=== PATIENT | male | born 1985 | race Caucasian/White ===

== ENCOUNTER 2021-02-02 18:25 | Inpatient (IN) ==
[2021-02-02] MEDS ORDERED: SODIUM CHLORIDE 0.9% 1000ML 1,000 ML IV ONE (18:43)
[2021-02-02] MEDS ORDERED: ACETAMINOPHEN 500 MG TAB PO STA (18:43)
[2021-02-02] MEDS ORDERED: PIPERACILL/TAZOBAC CONSULT ACTIVE PRN (18:43)
[2021-02-02] MEDS ORDERED: PIPERACILLIN/TAZOBACTAM 4.5 GM/120 ML BAG IV ONE (18:43)
--- NOTE | 2021-02-02 18:50 | Emergency Department Note ---
History of Present Illness General Chief complaint: Infection Stated complaint: LEG INFECTION, FEVER Time Seen by Provider: 02/02/21 18:31 Source: patient Mode of arrival: ambulatory Limitations: no limitations History of Present Illness Maximum Pain Intensity: 5 This patient is a 35-year-old male who comes in with left leg pain, redness and fever. He suffered a significant degloving injury at work in December 2019 and [facility] and was in rehab. He has had 2 leg infection since then 1 in April and one in July. He says this feels like similar. He is not on chronic antibiotics. He was feeling his usual state of health until around 4:00 in the morning he started getting a little bit of redness the pain started around 730 while at [employer] and then he started having chills and a fever. He has a slight headache and body aches. No cough or respiratory symptoms. No chest pain or shortness of breath. No urinary symptoms no rash except for on the leg. He did have multiple skin grafts there. He is on no prophylactic or chronic antibiotics. He is on no blood thinners. He did not have his Covid vaccine yet. He did not take any for his fever at home. Home Medications Medication Instructions Recorded Confirmed Type No Known Home Medications 02/02/21 02/02/21 History Allergies Allergy/AdvReac Type Severity Reaction Status Date / Time No Known Allergies Allergy Verified 02/02/21 18:53 Past Med/Surg History Social History Smoking Status: Never smoker Preferred Language: Polish Feels Safe at Home: Yes Immunizations: Past medical historycellulitis and degloving injury. Denies diabetes or other medical problems. Social history he lives locally. Does not smoke Review of Systems A total of 10 systems reviewed and were otherwise negative Physical Exam Vital Signs Vital Signs - 24 hr 02/02/21 18:28 02/02/21 18:43 02/02/21 19:00 Temperature 39.0 C H 39.4 C H Temperature Source Temporal Artery Scan Oral Pulse Rate 132 H Pulse Rate [Apical] Pulse Rate from SpO2 Sensor Respiratory Rate 18 Respiratory Effort / Characteristics Non-Labored Spontaneous Blood Pressure 182/96 H Blood Pressure [Right Arm] Blood Pressure Mean 124 Blood Pressure Mean [Right Arm] Pulse Oximetry 99 Oxygen Delivery Method Room Air Room Air Sepsis Recent Fever Within 48 Hours Yes Sepsis New/Unexplained Change in Mental Status No Sepsis Action Taken by Nursing No Action Required 02/02/21 19:13 02/02/21 19:19 02/02/21 19:23 Temperature Temperature Source Pulse Rate Pulse Rate [Apical] 123 H Pulse Rate from SpO2 Sensor Respiratory Rate 21 Respiratory Effort / Characteristics Non-Labored Spontaneous Blood Pressure Blood Pressure [Right Arm] 144/92 H Blood Pressure Mean Blood Pressure Mean [Right Arm] 109 Pulse Oximetry 98 Oxygen Delivery Method Room Air Room Air Room Air Sepsis Recent Fever Within 48 Hours Sepsis New/Unexplained Change in Mental Status Sepsis Action Taken by Nursing 02/02/21 19:30 02/02/21 19:43 02/02/21 20:00 Temperature Temperature Source Pulse Rate 130 H 125 H Pulse Rate [Apical] Pulse Rate from SpO2 Sensor 130 H 125 H Respiratory Rate 20 15 Respiratory Effort / Characteristics Non-Labored Spontaneous Non-Labored Spontaneous Blood Pressure 138/97 150/85 H Blood Pressure [Right Arm] Blood Pressure Mean 110 106 Blood Pressure Mean [Right Arm] Pulse Oximetry 99 98 Oxygen Delivery Method Room Air Room Air Room Air Sepsis Recent Fever Within 48 Hours Sepsis New/Unexplained Change in Mental Status Sepsis Action Taken by Nursing 02/02/21 20:19 02/02/21 20:30 02/02/21 21:00 Temperature 38.3 C H Temperature Source Oral Pulse Rate 130 H Pulse Rate [Apical] Pulse Rate from SpO2 Sensor 130 H Respiratory Rate 26 H Respiratory Effort / Characteristics Non-Labored Spontaneous Non-Labored Spontaneous Blood Pressure 162/79 H Blood Pressure [Right Arm] Blood Pressure Mean 106 Blood Pressure Mean [Right Arm] Pulse Oximetry 96 Oxygen Delivery Method Room Air Room Air Sepsis Recent Fever Within 48 Hours Sepsis New/Unexplained Change in Mental Status Sepsis Action Taken by Nursing 02/02/21 21:30 02/02/21 21:36 02/02/21 22:00 Temperature 37.6 C H Temperature Source Oral Pulse Rate Pulse Rate [Apical] 105 H Pulse Rate from SpO2 Sensor Respiratory Rate 18 Respiratory Effort / Characteristics Non-Labored Spontaneous Non-Labored Spontaneous Blood Pressure Blood Pressure [Right Arm] 143/109 H Blood Pressure Mean Blood Pressure Mean [Right Arm] 120 Pulse Oximetry 97 Oxygen Delivery Method Room Air Room Air Room Air Sepsis Recent Fever Within 48 Hours Sepsis New/Unexplained Change in Mental Status Sepsis Action Taken by Nursing 02/02/21 22:22 02/02/21 22:30 Temperature Temperature Source Pulse Rate Pulse Rate [Apical] Pulse Rate from SpO2 Sensor 100 H 98 H Respiratory Rate Respiratory Effort / Characteristics Non-Labored Spontaneous Blood Pressure 132/81 Blood Pressure [Right Arm] Blood Pressure Mean 98 Blood Pressure Mean [Right Arm] Pulse Oximetry 97 97 Oxygen Delivery Method Room Air Room Air Sepsis Recent Fever Within 48 Hours Sepsis New/Unexplained Change in Mental Status Sepsis Action Taken by Nursing General: Well developed well nourished not ill-appearing young male who appears in no acute distress, breathing comfortably on room air. Normal speech HEENT: Normal cephalic atraumatic. Pupils are equal round and reactive to light. Extraocular movements are intact. Oropharynx is pink with moist mucous membranes. No swelling of the mouth lips or tongue. Neck: Supple with a midline trachea. No meningeal signs or stiffness, no JVD or bruits. No Stridor. Kernig and Brezinski sign Chest: Clear to auscultation bilaterally. No wheezes or rhonchi. No increased work of breathing. Heart: Regular rate and rhythm without murmurs or gallops. Abdomen: Soft nontender, nondistended without rebound guarding or rigidity. Extremities: No cyanosis clubbing or edema. No calf tenderness or assymetry. His left calf is red and warm mostly laterally with a rash there from cellulitis. It is tender. Distally his foot is pink and well-perfused appearing and has no evidence of neurologic or neurovascular compromise. Spine/Back. Non tender to palpation. No CVA tenderness Skin: Good turgor without rashes. Neurologic exam: Cranial nerves two through 12 are intact. Motor and sensation are intact and symmetrical throughout. Course Administered Medications Potassium Chloride 20 meq/ (Lactated Ringer's) 1,010 mls @ 200 mls/hr IV .Q5H3M ONE Stop: 02/03/21 01:33 Last Admin: 02/02/21 23:52 Dose: 200 mls/hr Documented by: [id number] Discontinued Medications Acetaminophen (Acetaminophen 500 Mg Tab) 1,000 mg PO NOW STA Stop: 02/02/21 18:44 Last Admin: 02/02/21 18:59 Dose: 1,000 mg Documented by: [id number] Sodium Chloride (Nss 1000ml) 1,000 mls @ 999 mls/hr IV .Q1H1M ONE Stop: 02/02/21 19:43 Last Infusion: 02/02/21 23:02 Dose: 0 mls/hr Documented by: [id number] Admin: 02/02/21 19:21 Dose: 999 mls/hr Documented by: [id number] Piperacillin Sod/Tazobactam Sod (Zosyn) 4.5 gm in 120 mls @ 240 mls/hr IV NOW ONE Stop: 02/02/21 19:12 Last Infusion: 02/02/21 20:50 Dose: 0 mls/hr Documented by: [id number] Admin: 02/02/21 20:20 Dose: 240 mls/hr Documented by: [id number] Magnesium Sulfate/Dextrose (Magnesium Sulfate / D5w) 1 gm in 100 mls @ 50 mls/hr IV ONE ONE Stop: 02/02/21 22:29 Last Infusion: 02/02/21 23:52 Dose: 0 mls/hr Documented by: [id number] Admin: 02/02/21 21:38 Dose: 50 mls/hr Documented by: [id number] Doxycycline Hyclate 100 mg/ (Dextrose) 110 mls @ 50 mls/hr IV NOW STA Stop: 02/02/21 22:51 Last Infusion: 02/02/21 23:52 Dose: 0 mls/hr Documented by: [id number] Infusion: 02/02/21 23:52 Dose: 0 mls/hr Documented by: [id number] Admin: 02/02/21 21:37 Dose: 50 mls/hr Documented by: [id number] Ioversol (Optiray 320 100ml) 94 ml IV ONCE ONE Stop: 02/02/21 22:01 Last Admin: 02/02/21 22:00 Dose: 1 ml Documented by: [id number] Medical Decision Making Differential Diagnosis Cellulitis, sepsis, DVT, Covid, electrolyte or metabolic abnormality Medical Records Attestation: I reviewed the patient's medical records. Home Medications Current Medication List: was personally reviewed by me Laboratory Data Attestation: I reviewed the patient's lab results. Result diagrams: 02/02/21 19:21 02/02/21 19:21 Lab Results 02/02/21 02/02/21 02/02/21 Range/Units 19:21 19:21 19:21 WBC 9.05 (4.8-10.8) K/uL RBC 5.93 (4.7-6.1) M/uL Hgb 15.3 (14.0-18.0) g/dL Hct 46.0 (42-52) % MCV 77.6 L (80-100) fL MCH 25.8 (25-34) pg MCHC 33.3 (32-36) g/dL RDW Std Deviation 38.4 (36.4-46.3) fL RDW Coeff of Zahraa 13.8 (11.5-14.5) % Plt Count 265 (130-400) K/uL MPV 10.0 (7.4-10.4) fL Immature Gran % (Auto) 0.2 % Neut % (Auto) 82.0 % Lymph % (Auto) 10.6 % [facility] % (Auto) 7.0 % Eos % (Auto) 0.0 % Baso % (Auto) 0.2 % Neut # (Auto) 7.42 H (1.4-6.5) K/uL Lymph # (Auto) 0.96 L (1.2-3.4) K/uL [facility] # (Auto) 0.63 H (0.11-0.59) K/uL Eos # (Auto) 0.00 (0-0.5) K/uL Baso # (Auto) 0.02 (0-0.2) K/uL Immature Gran # (Auto) 0.02 (0.00-0.02) K/uL PT 11.1 (9.0-12.0) Seconds INR 1.1 (0.9-1.1) APTT 33.5 H (21.0-31.0) Seconds PTT Ratio 1.3 Sodium 134 L (136-145) mmol/L Potassium 3.8 (3.5-5.1) mmol/L Chloride 99 (98-107) mmol/L Carbon Dioxide 26 (21-32) mmol/L Anion Gap 9.0 (3-11) BUN 19 H (7-18) mg/dl Creatinine 1.38 (0.6-1.4) mg/dl Est Cr Clr Drug Dosing 95.5 ml/min Est GFR ( Amer) 77.3 ml/min Est GFR (Non-Af Amer) 66.7 ml/min BUN/Creatinine Ratio 14.0 (10-20) Glucose 97 (70-99) mg/dl Lactate (0.4-2.0) mmol/L Calcium 9.2 (8.5-10.1) mg/dl Magnesium 1.9 (1.8-2.4) mg/dl Total Bilirubin 0.7 (0.2-1) mg/dl AST 18 (15-37) U/L ALT 21 (12-78) U/L Alkaline Phosphatase 106 (45-117) U/L Troponin I < 0.015 (0-0.045) ng/ml Total Protein 9.0 H (6.4-8.2) gm/dl Albumin 4.0 (3.4-5.0) gm/dl Globulin 4.9 H (2.5-4.0) gm/dl Albumin/Globulin Ratio 0.8 L (0.9-2) Procalcitonin (0-0.5) ng/ml TSH 1.320 (0.300-4.500) uIu/ml Urine Color Urine Appearance (Clear) Urine pH (4.5-7.5) Ur Specific Cushing (1.000-1.030) Urine Protein (Negative) Urine Glucose (UA) (Negative) Urine Ketones (Negative) Urine Blood (Negative) Urine Nitrite (Negative) Urine Bilirubin (Negative) Urine Urobilinogen (Negative) Ur Leukocyte Esterase (Negative) Urine WBC (Auto) (0-5) /hpf Urine RBC (Auto) (0-4) /hpf U Hyaline Cast (Auto) (0-5) /lpf U Epithel Cells (Auto) (0-5) /lpf Urine Bacteria (Auto) (Negative) COVID-19 Eval Order SARS-CoV-2 (PCR) (Negative) 02/02/21 02/02/21 02/02/21 Range/Units 19:21 19:21 19:21 WBC (4.8-10.8) K/uL RBC (4.7-6.1) M/uL Hgb (14.0-18.0) g/dL Hct (42-52) % MCV (80-100) fL MCH (25-34) pg MCHC (32-36) g/dL RDW Std Deviation (36.4-46.3) fL RDW Coeff of Zahraa (11.5-14.5) % Plt Count (130-400) K/uL MPV (7.4-10.4) fL Immature Gran % (Auto) % Neut % (Auto) % Lymph % (Auto) % [facility] [place] % (Auto) % Eos % (Auto) % Baso % (Auto) % Neut # (Auto) (1.4-6.5) K/uL Lymph # (Auto) (1.2-3.4) K/uL [facility] [place] # (Auto) (0.11-0.59) K/uL Eos # (Auto) (0-0.5) K/uL Baso # (Auto) (0-0.2) K/uL Immature Gran # (Auto) (0.00-0.02) K/uL PT (9.0-12.0) Seconds INR (0.9-1.1) APTT (21.0-31.0) Seconds PTT Ratio Sodium (136-145) mmol/L Potassium (3.5-5.1) mmol/L Chloride (98-107) mmol/L Carbon Dioxide (21-32) mmol/L Anion Gap (3-11) BUN (7-18) mg/dl Creatinine (0.6-1.4) mg/dl Est Cr Clr Drug Dosing ml/min Est GFR ( Amer) ml/min Est GFR (Non-Af Amer) ml/min BUN/Creatinine Ratio (10-20) Glucose (70-99) mg/dl Lactate 1.3 (0.4-2.0) mmol/L Calcium (8.5-10.1) mg/dl Magnesium (1.8-2.4) mg/dl Total Bilirubin (0.2-1) mg/dl AST (15-37) U/L ALT (12-78) U/L Alkaline Phosphatase (45-117) U/L Troponin I (0-0.045) ng/ml Total Protein (6.4-8.2) gm/dl Albumin (3.4-5.0) gm/dl Globulin (2.5-4.0) gm/dl Albumin/Globulin Ratio (0.9-2) Procalcitonin 0.07 (0-0.5) ng/ml TSH Cancelled (0.300-4.500) uIu/ml Urine Color Urine Appearance (Clear) Urine pH (4.5-7.5) Ur Specific Cushing (1.000-1.030) Urine Protein (Negative) Urine Glucose (UA) (Negative) Urine Ketones (Negative) Urine Blood (Negative) Urine Nitrite (Negative) Urine Bilirubin (Negative) Urine Urobilinogen (Negative) Ur Leukocyte Esterase (Negative) Urine WBC (Auto) (0-5) /hpf Urine RBC (Auto) (0-4) /hpf U Hyaline Cast (Auto) (0-5) /lpf U Epithel Cells (Auto) (0-5) /lpf Urine Bacteria (Auto) (Negative) COVID-19 Eval Order SARS-CoV-2 (PCR) (Negative) 02/02/21 02/02/21 02/02/21 Range/Units 20:29 20:29 20:48 WBC (4.8-10.8) K/uL RBC (4.7-6.1) M/uL Hgb (14.0-18.0) g/dL Hct (42-52) % MCV (80-100) fL MCH (25-34) pg MCHC (32-36) g/dL RDW Std Deviation (36.4-46.3) fL RDW Coeff of Zahraa (11.5-14.5) % Plt Count (130-400) K/uL MPV (7.4-10.4) fL Immature Gran % (Auto) % Neut % (Auto) % Lymph % (Auto) % [facility] [place] [facility] % (Auto) % Eos % (Auto) % Baso % (Auto) % Neut # (Auto) (1.4-6.5) K/uL Lymph # (Auto) (1.2-3.4) K/uL [facility] [place] [facility] # (Auto) (0.11-0.59) K/uL Eos # (Auto) (0-0.5) K/uL Baso # (Auto) (0-0.2) K/uL Immature Gran # (Auto) (0.00-0.02) K/uL PT (9.0-12.0) Seconds INR (0.9-1.1) APTT (21.0-31.0) Seconds PTT Ratio Sodium (136-145) mmol/L Potassium (3.5-5.1) mmol/L Chloride (98-107) mmol/L Carbon Dioxide (21-32) mmol/L Anion Gap (3-11) BUN (7-18) mg/dl Creatinine (0.6-1.4) mg/dl Est Cr Clr Drug Dosing ml/min Est GFR ( Amer) ml/min Est GFR (Non-Af Amer) ml/min BUN/Creatinine Ratio (10-20) Glucose (70-99) mg/dl Lactate (0.4-2.0) mmol/L Calcium (8.5-10.1) mg/dl Magnesium (1.8-2.4) mg/dl Total Bilirubin (0.2-1) mg/dl AST (15-37) U/L ALT (12-78) U/L Alkaline Phosphatase (45-117) U/L Troponin I (0-0.045) ng/ml Total Protein (6.4-8.2) gm/dl Albumin (3.4-5.0) gm/dl Globulin (2.5-4.0) gm/dl Albumin/Globulin Ratio (0.9-2) Procalcitonin (0-0.5) ng/ml TSH (0.300-4.500) uIu/ml Urine Color Yellow Urine Appearance Clear (Clear) Urine pH 5.5 (4.5-7.5) Ur Specific Cushing 1.009 (1.000-1.030) Urine Protein Negative (Negative) Urine Glucose (UA) Negative (Negative) Urine Ketones Negative (Negative) Urine Blood Trace H (Negative) Urine Nitrite Negative (Negative) Urine Bilirubin Negative (Negative) Urine Urobilinogen Negative (Negative) Ur Leukocyte Esterase Negative (Negative) Urine WBC (Auto) 0 (0-5) /hpf Urine RBC (Auto) 0-4 (0-4) /hpf U Hyaline Cast (Auto) 0 (0-5) /lpf U Epithel Cells (Auto) 0-5 (0-5) /lpf Urine Bacteria (Auto) Negative (Negative) COVID-19 Eval Order Covid19 at [facility] SARS-CoV-2 (PCR) NEGATIVE (Negative) Imaging Data Attestation: I personally reviewed and interpreted this imaging study as follows: My Impression: Chest x-rayno acute infiltrate, failure, pneumothorax seen ECG Data Attestation: I personally reviewed and interpreted this ECG as follows: Indication: + other (Sepsis) Rate (beats per minute): 121 Rhythm: + sinus tachycardia ECG Intervals/blocks: + Normal QRS, + Normal QT and + Normal KS ECG Costa: + Normal ECG ST segments: + Normal ST segments ECG Findings: no PACs or no PVCs Comparison ECG Date: from (06/05/09) Change: the following changes noted (Rate has increased) MDM Narrative This patient comes in as described above. He was placed on a alarm security or surveillance monitor and B12. He has a high temperature and left leg swelling and redness. He has a history of cellulitis after having a significant degloving injury last year. I suspect that was going on at this point. IV access was established and was given IV fluid bolus. he was given Zosyn 4.5 g IV. Multiple blood testing was obtained including blood cultures and lactic acid. A full sepsis work-up was obtained I also did an ultrasound of his leg. He was reassessed frequently. He was given acetaminophen 1 g p.o. for his fever. Additionally was Covid tested. Covid testing was negative. Ultrasound of his leg does not show any evidence of DVT. He has a fever and cellulitis although his inflammatory markers look okay I do think that he needs to be admitted for IV antibiotics. He has been tolerating the IV Zosyn so far. I did discuss case with Dr. Calle who saw the patient in ED and will admit him for these measures. Continuous cardiac monitoring: Orders placed in EMR for continuous alarm security or surveillance monitor. Upon my interpretation the patient was noted to be sinus tachycardia at a rate of 110 Impression & Plan Cellulitis, Leg pain, left, Lab test negative for COVID-19 virus, Sepsis Discharge Plan Visit Data Chief Complaint: Infection Stated Complaint: LEG INFECTION, FEVER ED Provider: Moses Mathur Discharge Problem: Cellulitis, Leg pain, left, Lab test negative for COVID-19 virus, Sepsis Forms Stand Alone Forms: My [facility] [employer] Prescriptions Prescriptions: No Action No Known Home Medications RF: 0 Referrals Referrals: Sergey Sosa MD [Physician] -
[2021-02-02 19:38] LABS: Basophils # (auto) 0.02 K/uL (0-0.2); Basophils % (auto) 0.2 %; Hemoglobin 15.3 g/dL (14.0-18.0); Immature Granulocytes # (auto) 0.02 K/uL (0.00-0.02); Immature Granulocytes % (auto) 0.2 %; Lymphocytes # (auto) 0.96 K/uL (1.2-3.4); Lymphocytes % (auto) 10.6 %; Mean Corpuscular Hemoglobin 25.8 pg (25-34); Mean Corpuscular Hgb Conc 33.3 g/dL (32-36); Mean Corpuscular Volume 77.6 fL (80-100); Monocytes # (auto) 0.63 K/uL (0.11-0.59); Neutrophils # (auto) 7.42 K/uL (1.4-6.5); Platelet Count 265 K/uL (130-400); RDW Coefficient of Variation 13.8 % (11.5-14.5); RDW Standard Deviation 38.4 fL (36.4-46.3); Red Blood Count 5.93 M/uL (4.7-6.1); White Blood Count 9.05 K/uL (4.8-10.8)
[2021-02-02 19:47] LABS: INR 1.1 (0.9-1.1); Partial Thromboplastin Ratio 1.3; Partial Thromboplastin Time 33.5 Seconds (21.0-31.0); Prothrombin Time 11.1 Seconds (9.0-12.0)
[2021-02-02 19:59] LABS: Alanine Aminotransferase 21 U/L (12-78); Aspartate Aminotransferase 18 U/L (15-37); Blood Urea Nitrogen 19 mg/dl (7-18); Calcium 9.2 mg/dl (8.5-10.1); Carbon Dioxide 26 mmol/L (21-32); Chloride 99 mmol/L (98-107); Creatinine Clr Calc Pharmacy 95.5 ml/min; Est GFR (African American) 77.3 ml/min; Est GFR (Non-African American) 66.7 ml/min; Glucose 97 mg/dl (70-99); Magnesium 1.9 mg/dl (1.8-2.4); Potassium 3.8 mmol/L (3.5-5.1); Sodium 134 mmol/L (136-145)
[2021-02-02 20:04] LABS: Albumin Globulin Ratio 0.8 (0.9-2); Alkaline Phosphatase 106 U/L (45-117); Bilirubin,Total 0.7 mg/dl (0.2-1); Globulin 4.9 gm/dl (2.5-4.0); Troponin I < 0.015 ng/ml (0-0.045)
[2021-02-02] MEDS ORDERED: MAGNESIUM SULFATE / D5W 1 GM/100 ML BAG IV ONE (20:30)
[2021-02-02] MEDS ORDERED: POTASSIUM CHLORIDE 20 MEQ in LACTATED RINGER'S 1,000 ML IV ONE (20:31)
[2021-02-02] MEDS ORDERED: DOXYCYCLINE HYCLATE 100 MG in DEXTROSE 5% 100 ML IV STA (20:40)
[2021-02-02 20:57] LABS: Appearance Urine Clear (Clear); Bacteria Urine Automated Negative (Negative); Bilirubin Urine Negative (Negative); Blood Urine Trace (Negative); Cast Urine Automated 0 /lpf (0-5); Color Urine Yellow; Epithelial Cell Urine Auto 0-5 /lpf (0-5); Glucose Urine UA Negative (Negative); Ketones Urine Negative (Negative); Leukocyte Esterase Urine Negative (Negative); Nitrite Urine Negative (Negative); Protein Urine Negative (Negative); RBC Urine Automated 0-4 /hpf (0-4); Specific Gravity Urine 1.009 (1.000-1.030); Urobilinogen Urine Negative (Negative); WBC Urine Automated 0 /hpf (0-5); pH Urine 5.5 (4.5-7.5)
[2021-02-02] MEDS ORDERED: OPTIRAY 320 100ml IV ONE (22:00)
--- NOTE | 2021-02-02 22:40 | History & Physical Report ---
Date of Service February 02, 2021 Assessment & Plan (1) Sepsis: Plan: Secondary to recurrent LLE cellulitis hx traumatic injury Rule out osteomyelitis given recurrent infections History traumatic groin/penile injury status post reconstruction Medical telemetry CS, Doxycycline Local measures for leg cellulitis May need MRI left lower leg to rule out osteomyelitis as recent for recurrent infections DVT prophylaxis per Lovenox subcu Full code Text document was generated using [employer] voice recognition software. It may contain grammatical or spelling errors. Kindly contact undersigned for clarification of any documentation item in question. History of Present Illness Chief Complaint: Left lower leg swelling, fever Primary Care Provider: Eliazar Mac DO History obtained from patient and records. Medical history significant for traumatic groin degloving/penile injury status post reconstruction surgery (12/2019), recurrent leg cellulitis. 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 Subsequent surgical reconstruction of groin injury with tissue harvest from left thigh. Two subsequent admissions at [facility] in April, and August, for left lower leg abscess status post outpatient drainage and left lower l eg cellulitis, respectively. Patient unaware of any CS results. Today, patient noted sudden onset left leg pain, redness and fever. No chest pain, no S OB. No recent trauma. IV Zosyn given at the ER. 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 Allergies Allergy/AdvReac Type Severity Reaction Status Date / Time No Known Allergies Allergy Verified 02/02/21 18:53 Home Medications Medication Instructions Recorded Confirmed Type No Known Home Medications 02/02/21 02/02/21 History Past Med/Surg History Medical History (Updated 02/03/21 @ 10:58 by Lizabeth Cr PA-C) Cellulitis Surgical History (Updated 02/03/21 @ 09:08 by Lizabeth Cr PA-C) History of colostomy History of colostomy reversal hx of work related injury dec 2019 History of skin graft Family History (Updated 02/03/21 @ 09:09 by Lizabeth Cr PA-C) Father Diabetes Mother Hypertension Social History Smoking Status: Never smoker Second Hand Exposure: No; Hx Alcohol Use: No Hx Substance Use: No Preferred Language: Macedonian Beliefs That Will Affect Care: None Current Living Situation: Parent Other Information That Helps Us Care for You: No Feels Safe at Home: Yes Safety Concerns: Feels Safe At This Time Assistive Devices: Glasses Review of Systems Review of Systems: As per HPI, all 10 systems reviewed, all other ROS negative Physical Exam Physical Exam: GENERAL: Comfortable, pleasant, obese, no respiratory distress SKIN: Normal color, warm HEENT: [place] palpebral conjunctivae, no ptosis, dry buccal mucosa NECK : Supple, no tenderness CHEST : CTA, no tenderness HEART : RRR, no obvious murmurs ABDOMEN: Some distention, nontender EXTREMITIES : Healed surgical scar left thigh, tender induration left lower leg, no other conspicuous deformities noted NEUROLOGIC : Coherent, no facial asymmetry, no other gross focality Results & Data Results & Data ([facility]) Vital Signs (Past 12 Hours) Vital Signs Temp Pulse Pulse Resp BP BP Pulse Ox 02/02/21 22:30 132/81 97 02/02/21 22:22 97 02/02/21 21:36 37.6 C H 105 H 18 143/109 H 97 02/02/21 20:30 130 H 26 H 162/79 H 96 02/02/21 20:19 38.3 C H 02/02/21 20:00 125 H 15 150/85 H 98 02/02/21 19:30 130 H 20 138/97 99 02/02/21 19:23 123 H 21 144/92 H 98 02/02/21 19:00 39.4 C H 02/02/21 18:28 39.0 C H 132 H 18 182/96 H 99 Laboratory Results Laboratory Results WBC 9.05 K/uL (4.8-10.8) 02/02/21 19:21 RBC 5.93 M/uL (4.7-6.1) 02/02/21 19:21 Hgb 15.3 g/dL (14.0-18.0) 02/02/21 19:21 Hct 46.0 % (42-52) 02/02/21 19:21 MCV 77.6 fL (80-100) L 02/02/21: MCH 25.8 pg (25-34) 02/02/21 19: MCHC 33.3 g/dL (32-36) 02/02/21 19: RDW Std Deviation 38.4 fL (36.4-46.3) 02/02/21 19: RDW Coeff of [place]ahra[place] 13.8 % (11.5-14.5) 02/02/21: Plt Count 265 K/uL (130-400) 02/02/21 19: MPV 10.0 fL (7.4-10.4) 02/02/21 19: Immature Gran % (Auto) 0.2 % 02/02/21: Neut % (Auto) 82.0 % 02/02/21 19: Lymph % (Auto) 10.6 % 02/02/21: [place] % (Auto) 7.0 % 02/02/21 19: Eos % (Auto) 0.0 % 02/02/21: Baso % (Auto) 0.2 % 02/02/21: Neut # (Auto) 7.42 K/uL (1.4-6.5) H 02/02/21 19: Lymph # (Auto) 0.96 K/uL (1.2-3.4) L 02/02/21: [place] # (Auto) 0.63 K/uL (0.11-0.59) H 02/02/21 19: Eos # (Auto) 0.00 K/uL (0-0.5) 02/02/21: Baso # (Auto) 0.02 K/uL (0-0.2) 02/02/21: Immature Gran # (Auto) 0.02 K/uL (0.00-0.02) 02/02/21 19: PT 11.1 Seconds (9.0-12.0) 02/02/21 19: INR 1.1 (0.9-1.1) 02/02/21 19: APTT 33.5 Seconds (21.0-31.0) H 02/02/21 19: PTT Ratio 1.3 02/02/21 19: Sodium 134 mmol/L (136-145) L 02/02/21 19:21 Potassium 3.8 mmol/L (3.5-5.1) 02/02/21 19:21 Chloride 99 mmol/L (98-107) 02/02/21 19:21 Carbon Dioxide 26 mmol/L (21-32) 02/02/21 19:21 Anion Gap 9.0 (3-11) 02/02/21 19:21 BUN 19 mg/dl (7-18) H 02/02/21 19:21 Creatinine 1.38 mg/dl (0.6-1.4) 02/02/21 19: Est Cr Clr Drug Dosing 95.5 ml/min 02/02/21 19:21 Est GFR ( Amer) 77.3 ml/min 02/02/21 19: Est GFR (Non-Af Amer) 66.7 ml/min 02/02/21 19: BUN/Creatinine Ratio 14.0 (10-20) 02/02/21 19: Glucose 97 mg/dl (70-99) 02/02/21 19: Lactate 1.3 mmol/L (0.4-2.0) 02/02/21 19: Calcium 9.2 mg/dl (8.5-10.1) 02/02/21 19: Magnesium 1.9 mg/dl (1.8-2.4) 02/02/21 19: Total Bilirubin 0.7 mg/dl (0.2-1) 02/02/21 19:21 AST 18 U/L (15-37) 02/02/21 19:21 ALT 21 U/L (12-78) 02/02/21 19:21 Alkaline Phosphatase 106 U/L (45-117) 02/02/21 19: Troponin I < 0.015 ng/ml (0-0.045) 02/02/21 19:21 Total Protein 9.0 gm/dl (6.4-8.2) H 02/02/21 19:21 Albumin 4.0 gm/dl (3.4-5.0) 02/02/21 19:21 Globulin 4.9 gm/dl (2.5-4.0) H 02/02/21 19:21 Albumin/Globulin Ratio 0.8 (0.9-2) L 10/03/21 19:21 Procalcitonin 0.07 ng/ml (0-0.5) 02/02/21 19:21 TSH 1.320 uIu/ml (0.300-4.500) 02/02/21 19:21 TSH Cancelled 02/02/21 19:21 Urine Color Yellow 02/02/21 20:48 Urine Appearance Clear (Clear) 02/02/21 20:48 Urine pH 5.5 (4.5-7.5) 02/02/21 20:48 Ur Specific [place] 1.009 (1.000-1.030) 02/02/21 20:48 Urine Protein Negative (Negative) 02/02/21 20:48 Urine Glucose (UA) Negative (Negative) 02/02/21 20:48 Urine Ketones Negative (Negative) 02/02/21 20:48 Urine Blood Trace (Negative) H 02/02/21 20:48 Urine Nitrite Negative (Negative) 02/02/21 20:48 Urine Bilirubin Negative (Negative) 02/02/21 20:48 Urine Urobilinogen Negative (Negative) 02/02/21 20:48 Ur Leukocyte Esterase Negative (Negative) 02/02/21 20:48 Urine WBC (Auto) 0 /hpf (0-5) 02/02/21 20:48 Urine RBC (Auto) 0-4 /hpf (0-4) 02/02/21 20:48 U Hyaline Cast (Auto) 0 /lpf (0-5) 02/02/21 20:48 U Epithel Cells (Auto) 0-5 /lpf (0-5) 02/02/21 20:48 Urine Bacteria (Auto) Negative (Negative) 02/02/21 20:48 COVID-19 Eval Order Covid19 at [facility] 02/02/21 20:29 SARS-CoV-2 (PCR) NEGATIVE (Negative) 02/02/21 20:[address] left lower extremity initial read: the proximal marker at the level of the fibular head. There is subcutaneous fat stranding in this region suggesting cellulitis. Subcutaneous inflammatorychanges also extend along the anterior and anteromedial aspect of the leg. No abscess. No acute osseous findings. Venous ultrasound LLE initial read: No evidence of DVT Chest x-ray as per my interpretation no congestion EKG as per my interpretation : Rate 120, sinus tachycardia, normal axis, no ischemia (1) Sepsis Sepsis acute organ dysfunction status: unspecified Sepsis type: sepsis due to unspecified organism Qualified Code(s): A41.9 - Sepsis, unspecified organism
[2021-02-03] MEDS ORDERED: KETOROLAC TROMETHAMINE 15 MG/ML VIAL IV PRN (01:05)
[2021-02-03] MEDS ORDERED: LORazepam 0.5 MG/1 ML VIAL IV PRN (01:05)
[2021-02-03] MEDS ORDERED: IBUPROFEN 200 MG TAB PO PRN (01:05)
[2021-02-03] MEDS ORDERED: PROMETHAZINE HCL 12.5 MG in SODIUM CHLORIDE 0.9% 50 ML IV PRN (01:05)
[2021-02-03] MEDS ORDERED: ACETAMINOPHEN 325 MG TAB PO PRN (02:05)
[2021-02-03 05:53] LABS: Basophils # (auto) 0.01 K/uL (0-0.2); Basophils % (auto) 0.1 %; Eosinophils # (auto) 0.01 K/uL (0-0.5); Eosinophils % (auto) 0.1 %; Hemoglobin 13.7 g/dL (14.0-18.0); Immature Granulocytes # (auto) 0.01 K/uL (0.00-0.02); Immature Granulocytes % (auto) 0.1 %; Lymphocytes % (auto) 13.7 %; Mean Corpuscular Hemoglobin 25.8 pg (25-34); Mean Corpuscular Hgb Conc 33.4 g/dL (32-36); Mean Corpuscular Volume 77.4 fL (80-100); Mean Platelet Volume 10.3 fL (7.4-10.4); Monocytes # (auto) 0.89 K/uL (0.11-0.59); Monocytes % (auto) 11.1 %; Neutrophils # (auto) 5.99 K/uL (1.4-6.5); Neutrophils % (auto) 74.9 %; Platelet Count 199 K/uL (130-400); RDW Coefficient of Variation 13.7 % (11.5-14.5); RDW Standard Deviation 38.8 fL (36.4-46.3); White Blood Count 8.01 K/uL (4.8-10.8)
[2021-02-03 06:18] LABS: Potassium 3.8 mmol/L (3.5-5.1)
[2021-02-03 06:46] LABS: Calcium 8.4 mg/dl (8.5-10.1); Creatinine Clr Calc Pharmacy 147.1 ml/min; Est GFR (African American) 130.8 ml/min; Est GFR (Non-African American) 112.9 ml/min
--- NOTE | 2021-02-03 06:50 | XRay Report ---
XR chest 1V portable HISTORY: 35 years-old Male SEPSIS acute sepsis COMPARISON: Chest radiographs 06/05/2009 TECHNIQUE: Portable AP view of the chest FINDINGS: Cardiomediastinal and hilar silhouettes are within normal limits. No pneumothorax, pleural effusion, airspace consolidation or overt pulmonary edema. No acute fracture. IMPRESSION: No acute process. ACT 112: Negative or not required by law. The above report was generated using voice recognition software. It may contain grammatical, syntax o r spelling errors. Electronically signed by: Cristian Tong M.D. 02/03/2021 6:49 AM
--- NOTE | 2021-02-03 07:19 | CT Scan Report ---
CT tib/fib LT w con HISTORY: 35 years-old Male leg swelling, hx abscess acute pain and swelling of the left lower extrem ity with possible soft tissue infection COMPARISON: Doppler study 02/02/2021 TECHNIQUE: Multiple axial CT images of the left tibia and fibula were obtained following the intraven ous ministration of 94 mL Optiray 320. A dose lowering technique was used consistent with the princip als of [facility]. FINDINGS: Skin markers are noted along the lateral aspect of the lower leg. Mild anterior and lateral subcutane ous edema of the lower leg. No discrete soft tissue mass or fluid collection. Mild associated skin th ickening. The musculature appears to be within normal limits. No large joint effusion identified. The intrinsic structures of the knee are not well evaluated by CT technique. Lateral tilt of the patella within the trochlear groove with elongated tibial tuberosity to trochlear groove interval which may indicate patellar tracking abnormality. No acute fracture, dislocation, significant osteoarthritis or osteochondral defect identified. IMPRESSION: 1. No acute fracture or osseous erosion. 2. Mild subcutaneous anterolateral edema of the lower leg suggestive of cellulitis. No abscess. ACT 112: Negative or not required by law. The above report was generated using voice recognition software. It may contain grammatical, syntax o r spelling errors. Electronically signed by: Cristian Tong M.D. 02/03/2021 7:17 AM
--- NOTE | 2021-02-03 07:31 | Ultrasound Report ---
US venous doppler LE LT INDICATION: MN ^eval for dvt. COMPARISON: None available at the time of this dictation. TECHNIQUE: Left lower extremity real-time compression venous ultrasound with Color Doppler imaging. Utilizing real-time ultrasonic imaging multiple real time high-resolution ultrasonic images with comp ression and noncompression maneuvers of the deep venous system in addition to color doppler imaging w ere performed from the common femoral vein through the proximal calf veins. FINDINGS: Currently there is normal compressibility of the deep venous system from the common femoral vein thro ugh the proximal calf veins. No current evidence of acute thrombosis is identified. Rubor and swellin g of the extremity was noted during scanning. Impression: No evidence of deep venous thrombus. ACT 112: Negative or not required by law. Electronically signed by: Master Rome M.D. 02/03/2021 7:30 AM
[2021-02-03] MEDS: ENOXAPARIN INJ 40 MG/0.4 ML SYR SQ SCH (08:43)
[2021-02-03] MEDS: DOXYCYCLINE HYCLATE 100 MG CAP PO SCH ×2 (08:43→20:31)
--- NOTE | 2021-02-03 10:56 | Hospitalist Progress Note ---
Date of Service February 03, 2021 Assessment & Plan (1) Sepsis: (2) Left leg cellulitis: Plan: This is a 35-year-old male who has morbid obesity but is otherwise healthy without known medical problems presents to ED after experiencing increasing left leg redness and fever for 26 hours. Met sepsis criteria on admission 2/2 to tachycardia and fever - resolving Received broad spectrum IV antibiotics with IV zosyn and doxycycline Resuscitated with IV fluid Blood cultures pending Sepsis LLE Cellulitis continue IV antibiotics with IV rocephin and oral doxycycline await blood cultures 3 recurrence of cellulitis is exact same location after work injury in december of 2019 CT reviewed no evidence of abscess/foreign body possibly 2/2 to scabbed over lesion on LLE pretibial region check a1c rule out T2DM - given weight, +FH DVT ppx: SQ lovenox, encourage ambulation Dispo: home - possibly in 1-2 days FULL CODE Pt was seen and examined in collaboration with Dr. Coleman, please see addendum Please contact via [place] text with questions or concerns to Lizabeth Umanzor (Shaye). Admission and Anticipated Discharge Date Admission Date: February 02, 2021 Supervising Physician Co-Signing Physician Notes Patient seen and examined. 35-year-old man with traumatic groin degloving and penile injury status post reconstructive surgery in December 2019 with recurrent leg cellulitis who presents with left leg swelling, pain and redness as well as fever. Patient reports feeling better today. Reports pain is significantly improved. Physical exam notable for obesity, left leg redness and warmth with a pinpoint healing scab on anterior left leg Lab work today is grossly unremarkable except for slight drop in hemoglobin from 15.3 on admission to 13.7 [likely dilutional as all cell lines dropped likely due to IV fluids received for management of sepsis] Recurrent left leg cellulitis. This is a third episode of left leg cellulitis and involving the same spot. CT of the leg not show any foreign body or collection. Patient did report the accident that led to his degloving injury also involved significant injury to the left leg. Due to recurrent nature, will check hemoglobin A1c. Continue ceftriaxone and doxycycline for now Agree with other plans as detailed by Lizabeth Umanzor PA-C Subjective Patient was seen and examined in room 289. Follow-up left lower leg cellulitis. Patient overall feeling much improved this morning. This is his third recurrence of cellulitis to left lower leg in the exact same spot. This started in April 2020 after he experienced a degloving injury to left groin and leg in December 2019. At the time of first presentation he did have evidence of abscess in April 2020. His first and second episode was treated with oral antibiotics. Initial cellulitis was treated with Keflex and second recurrence was treated with Bactroban amoxicillin. His symptoms started approximately 26 hours prior to presentation. He noticed redness and warmth to his left leg. He also checked fever and it was 103. He was seen and evaluated in urgent care who recommended ED evaluation secondary to severity of fever and concern for sepsis. He did meet sepsis criteria upon admission secondary to tachycardia, fever and evidence of cellulitis. 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 He states initially the area of redness was very small and within hours became very large. He denies any pain, but mild itching. He felt his fever broke at approximately 5 AM and denies any further chills or sweats. He denies chest pain, shortness of breath, nausea, vomiting, abdominal pain. He tolerated his diet. He is passing flatus and urine without difficulty. Review of Systems Review of Systems: All systems reviewed & are unremarkable except as noted in HPI & below Physical Exam Physical Exam: Gen: WD/WN, M, NAD, A&O x3 HEENT: Normocephalic, atraumatic, conjunctivae moist, sclerae anicteric, mucous membranes moist. Lung: Clear to Auscultation bilaterally, no wheezes/rales/rhonchi Heart: Regular rate, regular rhythm, no murmurs, rubs, or gallops Abdomen: Soft, NT, ND +BS x 4 Extremities: LLE erythema to L pretibial and lateral pretibial region, + warmth, evidence of healing pinpoint scab to pretibial LLE which may be source Skin: Warm, no rash, negative turgor. Results & Data Results & Data ([facility]) Vital Signs (Past 12 Hours) Vital Signs Temp Pulse Pulse Resp BP BP Pulse Ox 02/03/21 07:53 37.6 C H 90 18 123/75 98 02/03/21 03:59 87 02/03/21 01:42 37.0 C 80 16 134/85 99 02/03/21 00:30 132/77 98 02/03/21 00:00 132/75 97 02/02/21 23:30 136/74 97 02/02/21 23:00 129/69 97 Laboratory Results Short CBC 02/02/21 02/03/21 Range/Units 19:21 05:30 WBC 9.05 8.01 (4.8-10.8) K/uL Hgb 15.3 13.7 L (14.0-18.0) g/dL Hct 46.0 41.0 L (42-52) % Plt Count 265 199 (130-400) K/uL BMP 02/02/21 02/03/21 19:21 05:30 Sodium 134 L 136 Potassium 3.8 3.8 Chloride 99 105 Carbon Dioxide 26 24 BUN 19 H 14 Creatinine 1.38 0.88 D Glucose 97 123 H Calcium 9.2 8.4 L Cardiac Enzymes 02/02/21 Range/Units 19:21 Troponin I < 0.015 (0-0.045) ng/ml Liver Function 02/02/21 Range/Units 19:21 Total Bilirubin 0.7 (0.2-1) mg/dl AST 18 (15-37) U/L ALT 21 (12-78) U/L Alkaline Phosphatase 106 (45-117) U/L Albumin 4.0 (3.4-5.0) gm/dl Urine 02/02/21 Range/Units 20:48 Urine Color Yellow Urine Appearance Clear (Clear) Urine pH 5.5 (4.5-7.5) Ur Specific [place] 1.009 (1.000-1.030) Urine Protein Negative (Negative) Urine Glucose (UA) Negative (Negative) Diagnostic Findings Chest X-Ray 02/02/21 18:43 XR chest 1V portable HISTORY: 35 years-old Male SEPSIS acute sepsis COMPARISON: Chest radiographs 06/05/2009 TECHNIQUE: Portable AP view of the chest FINDINGS: Cardiomediastinal and hilar silhouettes are within normal limits. No pneumothorax, pleural effusion, airspace consolidation or overt pulmonary edema. No acute fracture. IMPRESSION: No acute process. ACT 112: Negative or not required by law. The above report was generated using voice recognition software. It may contain grammatical, syntax or spelling errors. Electronically signed by: Cristian Tong M.D. 02/03/2021 6:49 AM Venous Doppler Study 02/02/21 18:43 US venous doppler LE LT INDICATION: MN ^^eval for dvt. COMPARISON: None available at the time of this dictation. TECHNIQUE: Left lower extremity real-time compression venous ultrasound with Color Doppler imaging. Utilizing real-time ultrasonic imaging multiple real time high-resolution ultrasonic images with compression and noncompression maneuvers of the deep venous system in addition to color doppler imaging were performed from the common femoral vein through the proximal calf veins. FINDINGS: Currently there is normal compressibility of the deep venous system from the common femoral vein through the proximal calf veins. No current evidence of acute thrombosis is identified. Rubor and swelling of the extremity was noted during scanning. Impression: No evidence of deep venous thrombus. ACT 112: Negative or not required by law. Electronically signed by: Master Rome M.D. 02/03/2021 7:[address] 02/02/21 21:24 CT tib/fib LT w con HISTORY: 35 years-old Male leg swelling, hx abscess acute pain and swelling of the left lower extremity with possible soft tissue infection COMPARISON: Doppler study 02/02/2021 TECHNIQUE: Multiple axial CT images of the left tibia and fibula were obtained following the intravenous ministration of 94 mL Optiray 320. A dose lowering technique was used consistent with the principals of [facility]. FINDINGS: Skin markers are noted along the lateral aspect of the lower leg. Mild anterior and lateral subcutaneous edema of the lower leg. No discrete soft tissue mass or fluid collection. Mild associated skin thickening. The musculature appears to be within normal limits. No large joint effusion identified. The intrinsic structures of the knee are not well evaluated by CT technique. Lateral tilt of the patella within the trochlear groove with elongated tibial tuberosity to trochlear groove interval which may indicate patellar tracking abnormality. No acute fracture, dislocation, significant osteoarthritis or osteochondral defect identified. IMPRESSION: 1. No acute fracture or osseous erosion. 2. Mild subcutaneous anterolateral edema of the lower leg suggestive of cellulitis. No abscess. ACT 112: Negative or not required by law. The above report was generated using voice recognition software. It may contain grammatical, syntax or spelling errors. Electronically signed by: Cristian Tong M.D. 02/03/2021 7:17 AM Medications Administered Current Inpatient Medications Acetaminophen (Acetaminophen 325 Mg Tab) 650 mg PO Q4H PRN PRN Reason: Pain or Fever Stop: 03/05/21 02:04 Doxycycline Hyclate (Doxycycline Hyclate 100 Mg Cap) 100 mg PO BID [facility]; Protocol Stop: 02/10/21 08:59 Last Admin: 02/03/21 08:43 Dose: 100 mg Documented by: Enoxaparin Sodium (Enoxaparin Inj 40 Mg/0.4 Ml Syr) 40 mg SQ QAM JUAN RAMON Stop: 03/05/21 08:59 Last Admin: 02/03/21 08:43 Dose: 40 mg Documented by: Promethazine HCl 12.5 mg/ (Sodium Chloride) 50.5 mls @ 202 mls/hr IV Q6H PRN PRN Reason: Nausea And Vomiting Stop: 03/05/21 01:04 Lorazepam (Ativan) 0.5 mg in 1 mls @ 1 mls/min IV Q4H PRN PRN Reason: Anxiety/Agitation Stop: 03/05/21 01:04 Ceftriaxone Sodium 2,000 mg/ (Dextrose) 70 mls @ 100 mls/hr IV DAILY [facility]; Protocol Stop: 02/10/21 10:59 Ibuprofen (Ibuprofen 200 Mg Tab) 200 mg PO Q6H PRN PRN Reason: Mild Pain Stop: 03/05/21 01:04 Ketorolac Tromethamine (Ketorolac Tromethamine 15 Mg/Ml Vial) 15 mg IV Q6H PRN PRN Reason: Pain Stop: 02/08/21 01:04 (1) Sepsis Sepsis acute organ dysfunction status: unspecified Sepsis type: sepsis due to unspecified organism Qualified Code(s): A41.9 - Sepsis, unspecified organism
[2021-02-03] MEDS: cefTRIAXone SODIUM 2,000 MG in DEXTROSE 5% 50 ML IV SCH (12:15)
--- NOTE | 2021-02-03 14:24 | Electrocardiogram Report ---
Test Reason : Blood Pressure : / mmHG Vent. Rate : 121 BPM Atrial Rate : 121 BPM P-R Int : 150 ms QRS Dur : 086 ms QT Int : 304 ms P-R-T Axes : 045 026 039 degrees QTc Int : 431 ms Sinus tachycardia Possible Left atrial enlargement Borderline ECG When compared with ECG of 05-JUN-2009 22:53, No significant change was found Confirmed by Adam Monteiro ([id number]) on 02/03/2021 2:24:08 PM Referred By: REFERRED SELF Confirmed By:Rolando Monteiro
[2021-02-04 05:54] LABS: Basophils # (auto) 0.03 K/uL (0-0.2); Basophils % (auto) 0.4 %; Eosinophils # (auto) 0.15 K/uL (0-0.5); Eosinophils % (auto) 2.2 %; Hematocrit (blood only) 42.7 % (42-52); Immature Granulocytes # (auto) 0.01 K/uL (0.00-0.02); Immature Granulocytes % (auto) 0.1 %; Lymphocytes % (auto) 32.4 %; Mean Corpuscular Hemoglobin 25.6 pg (25-34); Mean Corpuscular Hgb Conc 32.8 g/dL (32-36); Mean Corpuscular Volume 78.1 fL (80-100); Mean Platelet Volume 10.2 fL (7.4-10.4); Monocytes # (auto) 0.98 K/uL (0.11-0.59); Monocytes % (auto) 14.4 %; Neutrophils # (auto) 3.42 K/uL (1.4-6.5); Neutrophils % (auto) 50.5 %; Platelet Count 212 K/uL (130-400); RDW Coefficient of Variation 13.7 % (11.5-14.5); RDW Standard Deviation 38.2 fL (36.4-46.3); Red Blood Count 5.47 M/uL (4.7-6.1); White Blood Count 6.79 K/uL (4.8-10.8)
[2021-02-04 07:09] LABS: BUN Creatinine Ratio 16.1 (10-20); Calcium 9.6 mg/dl (8.5-10.1); Creatinine Clr Calc Pharmacy 126.9 ml/min; Est GFR (African American) 111.4 ml/min; Est GFR (Non-African American) 96.1 ml/min; Potassium 4.2 mmol/L (3.5-5.1)
[2021-02-04 07:21] LABS: Estimated Average Glucose 114 mg/dl; Hemoglobin A1C 5.6 % (4.5-5.6)
[2021-02-04] MEDS: DOXYCYCLINE HYCLATE 100 MG CAP PO SCH ×2 (09:03→21:36)
[2021-02-04] MEDS: ENOXAPARIN INJ 40 MG/0.4 ML SYR SQ SCH (09:04)
--- NOTE | 2021-02-04 11:54 | Hospitalist Progress Note ---
Date of Service February 04, 2021 Assessment & Plan (1) Sepsis: (2) Left leg cellulitis: Plan: This is a 35-year-old male who has morbid obesity but is otherwise healthy without known medical problems presents to ED after experiencing increasing left leg redness and fever for 26 hours. Met sepsis criteria on admission 2/2 to tachycardia and fever - resolving Received broad spectrum IV antibiotics with IV zosyn and doxycycline Resuscitated with IV fluid Blood cultures pending Sepsis LLE Cellulitis continue IV antibiotics with IV rocephin and oral doxycycline Blood cultures negative for 24 hours 3 recurrence of cellulitis is exact same location after work injury in december of 2019 CT reviewed no evidence of abscess/foreign body possibly 2/2 to scabbed over lesion on LLE pretibial region A1c 5.6 discontinue telemetry, ok for med/surg status DVT ppx: SQ lovenox, encourage ambulation Dispo: home -likely discharge tomorrow FULL CODE Pt was seen and examined in collaboration with Dr. Coleman, please see addendum Admission and Anticipated Discharge Date Admission Date: February 02, 2021 Supervising Physician Co-Signing Physician Notes Patient seen and examined. 35-year-old man with traumatic groin degloving and penile injury status post reconstructive surgery in December 2019 with recurrent leg cellulitis who presents with left leg swelling, pain and redness as well as fever. Patient reports feeling better today. Reports pain is significantly improved. Physical exam notable for obesity, left leg redness and warmth with a pinpoint healing scab on anterior left leg Lab work today is grossly unremarkable except for slight drop in hemoglobin from 15.3 on admission to 13.7 [likely dilutional as all cell lines dropped likely due to IV fluids received for management of sepsis] Sepsis due to Recurrent left leg cellulitis. This is a third episode of left leg cellulitis and involving the same spot. CT of the leg not show any foreign body or collection. Hemoglobin A1c - 5.6 Had temp overnight. Marked area of cellulits showing improvement in lateral part but extension beyond margins on medial part Continue ceftriaxone and doxycycline for now for another day and monitor Agree with other plans as detailed by Lizabeth Umanzor PA-C Subjective Patient was seen and examined in room 289. Follow-up left lower leg cellulitis. Patient was very frustrated last evening. He had increasing pain to left leg and felt like redness was getting worse. When he woke up this morning he was pleasantly surprised to see his left leg less red, all the redness did extend outside the border of his skin marker. Last evening after feeling frustrated he lied back in bed and elevated his legs. He does admit to ambulating around the unit. Currently he is feeling much improved and denies fever, chills, sweats, chest pain, shortness of breath, nausea, vomiting, abdominal pain. He is tolerating a diet and urinating without difficulty. He is anxious to be discharged. He showed me pictures of previous episodes of cellulitis, which were similar in nature but slightly different locations on the left lower leg. Review of Systems Review of Systems: All systems reviewed & are unremarkable except as noted in HPI & below Physical Exam Physical Exam: Gen: WD/WN, M, NAD, A&O x3 HEENT: Normocephalic, atraumatic, conjunctivae moist, sclerae anicteric, mucous membranes moist. Lung: Clear to Auscultation bilaterally, no wheezes/rales/rhonchi Heart: Regular rate, regular rhythm, no murmurs, rubs, or gallops Abdomen: Soft, NT, ND +BS x 4 Extremities: LLE erythema to L pretibial and lateral pretibial region, erythema is improving, less warm, evidence of healing pinpoint scab to pretibial LLE Skin: Warm, no rash, negative turgor. Results & Data Results & Data ([facility]) Vital Signs (Past 12 Hours) Vital Signs Temp Pulse Pulse Resp BP Pulse Ox 02/04/21 11:38 36.4 C L 66 18 135/81 98 02/04/21 08:00 67 02/04/21 07:23 36.6 C 77 18 152/93 H 98 02/04/21 04:00 36.9 C 68 18 125/75 98 02/04/21 01:11 80 Laboratory Results Short CBC 02/04/21 Range/Units 05:37 WBC 6.79 (4.8-10.8) K/uL Hgb 14.0 (14.0-18.0) g/dL Hct 42.7 (42-52) % Plt Count 212 (130-400) K/uL BMP 02/04/21 05:37 Sodium 140 Potassium 4.2 Chloride 107 Carbon Dioxide 28 BUN 16 Creatinine 1.02 Glucose 95 Calcium 9.6 Medications Administered Current Inpatient Medications Acetaminophen (Acetaminophen 325 Mg Tab) 650 mg PO Q4H PRN PRN Reason: Pain or Fever Stop: 03/05/21 02:04 Doxycycline Hyclate (Doxycycline Hyclate 100 Mg Cap) 100 mg PO BID [facility]; Protocol Stop: 02/10/21 08:59 Last Admin: 02/04/21 09:03 Dose: 100 mg Documented by: Enoxaparin Sodium (Enoxaparin Inj 40 Mg/0.4 Ml Syr) 40 mg SQ QAM [facility] Stop: 03/05/21 08:59 Last Admin: 02/04/21 09:04 Dose: 40 mg Documented by: Promethazine HCl 12.5 mg/ (Sodium Chloride) 50.5 mls @ 202 mls/hr IV Q6H PRN PRN Reason: Nausea And Vomiting Stop: 03/05/21 01:04 Lorazepam (Ativan) 0.5 mg in 1 mls @ 1 mls/min IV Q4H PRN PRN Reason: Anxiety/Agitation Stop: 03/05/21 01:04 Ceftriaxone Sodium 2,000 mg/ (Dextrose) 70 mls @ 100 mls/hr IV DAILY@1200 JUAN RAMON; Protocol Stop: 02/10/21 11:59 Last Infusion: 02/03/21 13:55 Dose: Infused Documented by: Ibuprofen (Ibuprofen 200 Mg Tab) 200 mg PO Q6H PRN PRN Reason: Mild Pain Stop: 03/05/21 01:04 Ketorolac Tromethamine (Ketorolac Tromethamine 15 Mg/Ml Vial) 15 mg IV Q6H PRN PRN Reason: Pain Stop: 02/08/21 01:04 (1) Sepsis Sepsis acute organ dysfunction status: unspecified Sepsis type: sepsis due to unspecified organism Qualified Code(s): A41.9 - Sepsis, unspecified organism
[2021-02-04] MEDS: cefTRIAXone SODIUM 2,000 MG in DEXTROSE 5% 50 ML IV SCH (12:30)
[2021-02-05 06:24] LABS: Basophils # (auto) 0.03 K/uL (0-0.2); Basophils % (auto) 0.4 %; Eosinophils # (auto) 0.23 K/uL (0-0.5); Eosinophils % (auto) 3.3 %; Hematocrit (blood only) 40.7 % (42-52); Hemoglobin 13.5 g/dL (14.0-18.0); Immature Granulocytes # (auto) 0.01 K/uL (0.00-0.02); Immature Granulocytes % (auto) 0.1 %; Lymphocytes # (auto) 2.18 K/uL (1.2-3.4); Lymphocytes % (auto) 31.5 %; Mean Corpuscular Hemoglobin 25.5 pg (25-34); Mean Corpuscular Hgb Conc 33.2 g/dL (32-36); Mean Corpuscular Volume 76.9 fL (80-100); Mean Platelet Volume 10.5 fL (7.4-10.4); Monocytes # (auto) 0.91 K/uL (0.11-0.59); Monocytes % (auto) 13.1 %; Neutrophils # (auto) 3.57 K/uL (1.4-6.5); Neutrophils % (auto) 51.6 %; Platelet Count 233 K/uL (130-400); RDW Coefficient of Variation 13.9 % (11.5-14.5); RDW Standard Deviation 39.4 fL (36.4-46.3); Red Blood Count 5.29 M/uL (4.7-6.1); White Blood Count 6.93 K/uL (4.8-10.8)
[2021-02-05] MEDS: DOXYCYCLINE HYCLATE 100 MG CAP PO SCH (09:07)
[2021-02-05] MEDS: ENOXAPARIN INJ 40 MG/0.4 ML SYR SQ SCH (09:07)
--- NOTE | 2021-02-05 10:19 | Discharge Summary ---
Date of Service February 05, 2021 Admission HPI Per Admitting Provider History obtained from patient and records. Medical history significant for traumatic groin degloving/penile injury status post reconstruction surgery (12/2019), recurrent leg cellulitis. 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 Subsequent surgical reconstruction of groin injury with tissue harvest from left thigh. Two subsequent admissions at [facility] in April, and August, for left lower leg abscess status post outpatient drainage and left lower leg cellulitis, respectively. Patient unaware of any CS results. Today, patient noted sudden onset left leg pain, redness and fever. No chest pain, no S OB. No recent trauma. IV Zosyn given at the ER. 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 Admission Exam Per Admitting Provider Physical Exam Physical Exam: GENERAL: Comfortable, pleasant, obese, no respiratory distress SKIN: Normal color, warm HEENT: Sunbright palpebral conjunctivae, no ptosis, dry buccal mucosa NECK : Supple, no tenderness CHEST : CTA, no tenderness HEART : RRR, no obvious murmurs ABDOMEN: Some distention, nontender EXTREMITIES : Healed surgical scar left thigh, tender induration left lower leg, no other conspicuous deformities noted NEUROLOGIC : Coherent, no facial asymmetry, no other gross focality Principal Diagnosis Sepsis L leg cellulitis Discharge Exam Gen: WD/WN, NAD, A&O x3 HEENT: Normocephalic, atraumatic, conjunctivae moist, sclerae anicteric, mucous membranes moist. Lung: Clear to Auscultation bilaterally, no wheezes/rales/rhonchi Heart: Regular rate, regular rhythm, no murmurs, rubs, or gallops Abdomen: Soft, NT, ND +BS x 4 Extremities: LLE with significant improved erythema, minimal warmth, redness has receded based off of skin markings Skin: Warm, no rash, negative turgor. Discharge Data Allergies Allergy/AdvReac Type Severity Reaction Status Date / Time No Known Allergies Allergy Verified 02/02/21 18:53 Consultations 02/02/21 20:16 ED Decision to Admit Stat 02/02/21 21:39 ED Decision to Admit Stat Ordered Studies Chest X-Ray 02/02/21 18:43 XR chest 1V portable HISTORY: 35 years-old Male SEPSIS acute sepsis COMPARISON: Chest radiographs 06/05/2009 TECHNIQUE: Portable AP view of the chest FINDINGS: Cardiomediastinal and hilar silhouettes are within normal limits. No pneumothorax, pleural effusion, airspace consolidation or overt pulmonary edema. No acute fracture. IMPRESSION: No acute process. ACT 112: Negative or not required by law. The above report was generated using voice recognition software. It may contain grammatical, syntax or spelling errors. Electronically signed by: Cristian Tong M.D. 02/03/2021 6:49 AM Venous Doppler Study 02/02/21 18:43 US venous doppler LE LT INDICATION: MN ^^eval for dvt. COMPARISON: None available at the time of this dictation. TECHNIQUE: Left lower extremity real-time compression venous ultrasound with Color Doppler imaging. Utilizing real-time ultrasonic imaging multiple real time high-resolution ultrasonic images with compression and noncompression maneuvers of the deep venous system in addition to color doppler imaging were performed from the common femoral vein through the proximal calf veins. FINDINGS: Currently there is normal compressibility of the deep venous system from the common femoral vein through the proximal calf veins. No current evidence of acute thrombosis is identified. Rubor and swelling of the extremity was noted during scanning. Impression: No evidence of deep venous thrombus. ACT 112: Negative or not required by law. Electronically signed by: Master Rome M.D. 02/03/2021 7:[address] 02/02/21 21:24 CT tib/fib LT w con HISTORY: 35 years-old Male leg swelling, hx abscess acute pain and swelling of the left lower extremity with possible soft tissue infection COMPARISON: Doppler study 02/02/2021 TECHNIQUE: Multiple axial CT images of the left tibia and fibula were obtained following the intravenous ministration of 94 mL Optiray 320. A dose lowering technique was used consistent with the principals of ALARA. FINDINGS: Skin markers are noted along the lateral aspect of the lower leg. Mild anterior and lateral subcutaneous edema of the lower leg. No discrete soft tissue mass or fluid collection. Mild associated skin thickening. The musculature appears to be within normal limits. No large joint effusion identified. The intrinsic structures of the knee are not well evaluated by CT technique. Lateral tilt of the patella within the trochlear groove with elongated tibial tuberosity to trochlear groove interval which may indicate patellar tracking abnormality. No acute fracture, dislocation, significant osteoarthritis or osteochondral defect identified. IMPRESSION: 1. No acute fracture or osseous erosion. 2. Mild subcutaneous anterolateral edema of the lower leg suggestive of cellulitis. No abscess. ACT 112: Negative or not required by law. The above report was generated using voice recognition software. It may contain grammatical, syntax or spelling errors. Electronically signed by: Cristian Tong M.D. 02/03/2021 7:17 AM Hospital Course (1) Sepsis: (2) Left leg cellulitis: This is a 35-year-old male who has morbid obesity but is otherwise healthy without known medical problems presents to ED after experiencing increasing left leg redness and fever for 26 hours. He met sepsis criteria on admission 2/2 to tachycardia and fever. Initially pt treated with broad spectrum IV antibiotics zosyn and doxycycline. He was de escalated to IV rocephin 2g daily and oral doxycycline. His blood cultures were negative for 48 hours. He was fever free for 24 hours prior to discharge. Erythema and pain has resolved significantly and receded based on skin markings. This is his 3rd recurrence of cellulitis in a similar location since work place accident in December of 2019. He was screen for T2DM and A1C was 5.6. At time of discharge his vital signs were normal and he was tolerating a normal diet. He is being discharged on oral keflex and doxycycline to complete a 7 day course of antibiotics today. He was encouraged to take probiotic with antibiotics. Total Time Total Time Spent Total Time Spent (In Minutes): 35 Total Time Includes: Examination of the Patient, Discharge Planning, Medication Reconciliation, Communication With Other Providers and Other Discharge Plan Discharge Items Patient Disposition: Home - Self-Care Reason For Visit: SEPSIS Discharge Diagnosis: Sepsis Left Leg Cellulitis Condition on Discharge: Good Activity: Resume your previous activity Exercise/Sports: Wait until after follow-up appointment Non-emergency contact: Primary Care Provider Call non-emergency contact if: you have any medication questions, your symptoms worsen, your pain is not controlled, your pain is worsening, you have a fever, your temperature is above 101, your wound has increased redness and your wound pain has increased Follow-up/Referrals: Eliazar Mac DO [Primary Care Provider] - 02/11/21 11:00 am (Date & Time 02/11/2021 11:00 AM Provider Eliazar Mac DO Department [facility] ) Diet: Regular Addtl Attending Provider Instructions: MEDICATION CHANGES: You have been started on two different antibiotics and will need to complete at total 7 day course. 1. Doxycycline, 100mg by mouth twice daily be completed on 02/09/21. Last dose 02/05/21 @ 9:00 A.M. Next Dose due 02/05/21 9:00 P.M. 2. Keflex (cephalexin), 500mg by mouth four times a day to be completed on 02/09/21. Last dose of IV antibiotic 02/05. Next dose of Keflex due 02/06/21 8:00 A.M. Recommend increasing daily probiotic intake while on antibiotics. SUMMARY OF TEST RESULTS/HOSPITALIZATION: You have been admitted to the hospital due to Left lower leg cellulitis. You met Sepsis criteria and you were treated with IV antibiotics. You had a CT scan of your left leg which was negative for foreign body or abscess. An ultrasound was also performed which was negative for DVT. Your blood cultures remained negative throughout hospital stay. You were evaluated for diabetes using an A1C, which was 5.6. This is negative for diabetes. PENDING TEST RESULTS: None RECOMMENDATIONS FOR FOLLOW-UP: Please complete antibiotics in its entirety. Keep follow up appointment with your PCP, Dr. Mac, on 02/11/21 @ 11:00AM Monitor area of cellulitis for increasing redness, warmth or swelling. If any of these develop or do not completely resolve please contact your PCP immediately. You may take Tylenol 500mg every 6 hours as needed for pain OR Ibuprofen 400mg every 6 hours as needed for pain. OTHER INSTRUCTIONS: Seek medical attention if you have: * temperature above 101 * chest pain or trouble breathing * abdominal pain, nausea, vomiting * diarrhea, dark stools or bloody stools * any unanswered questions or concerns Call 911 if symptoms are severe. Please take good care of yourself. It has been a pleasure taking care of you. Please take care of yourself. If you have any questions regarding your recent hospitalization please contact [facility] and request Milly Powers @ [phone]. Lizabeth Umanzor PA-C Pending Studies at Discharge: No Stand-Alone Forms: My [facility], Smoking Cessation Medications and DC Order Prescriptions: New doxycycline hyclate 100 mg Capsule 100 mg PO BID Qty: 9 RF: 0 cephalexin 500 mg capsule 500 mg PO QID Qty: 16 RF: 0 Discharge Orders: Discharge Order (Routine); Ordered 02/05/21 Ordered By: Lizabeth Miranda/Other Patient Handouts: Healthy Eating on the Go, ED Cellulitis Admission Data Admit Date/Time: 02/02/21 22:43 Attending Provider: Maximo Santoro Admit Provider: Kulwant Cadet Primary Care Provider: Eliazar Mac Other Providers: Kulwant Cadet ; Lizabeth Umanzor Other Interventions: Discharge Summary Assessment (RN) Last Done: 02/05/21 12:31 Supervising Physician Co-Signing Physician Notes Patient is seen and examined at bedside. Left leg erythema much improved. Denies any pain at infectious site. States feeling well today. Also denies any chest pain, shortness of breath, dizziness, nausea, abdominal pain. On exam patient is obese, no apparent distress, normocephalic atraumatic, lungs are clear to auscultation, normal breath sounds, S1-S2, no murmur, no pedal edema, abdomen soft, nontender, normal bowel sounds, alert, awake, oriented, grossly no focal deficits, left leg erythema improving. Sepsis, left lower extremity cellulitis. Agree with transitioning to p.o. antibiotics to complete the course. Advised to follow-up with primary care physician in 1 week. Also advised to follow-up with infectious disease if recurrent infection. I personally reviewed the record. Patient is interviewed and examined at bedside. Patient's care is coordinated with Lizabeth Umanzor PA-C. Please refer to the documentation above for details of patient's presentation and for discussion of other issues.
[2021-02-05] MEDS: cefTRIAXone SODIUM 2,000 MG in DEXTROSE 5% 50 ML IV SCH (11:39)
== END 2021-02-05 15:07 | disposition home or self-care (01) | DRG 872 ==
LOC: ED 18:25 → SUATTDRO 22:43 → 2N 22:43 → 3N 02-04 15:26